=== PATIENT | female | born 1960 | race Caucasian/White ===

== ENCOUNTER 2024-04-26 17:52 | Outpatient (RCR) | payer BC, SELFPAY | END 2024-04-26 23:59 | disposition home or self-care (01) | LOC: RPT 17:52 | PROVIDERS: ATTENDING PHYSICIAN Orthopaedic Surgery; FAMILY PHYSICIAN Family Medicine | DX: M79.671 Pain in right foot (principal); M79.672 Pain in left foot | CPT/HCPCS: 97110; 97162; 97535 ==

== ENCOUNTER → 2024-05-03 | Outpatient (REF) | payer BC, SELFPAY | LOC: DHSLP | PROVIDERS: ATTENDING PHYSICIAN Internal Medicine; FAMILY PHYSICIAN Family Medicine | DX: G47.33 Obstructive sleep apnea (adult) (pediatric) (principal) | CPT/HCPCS: 95800 ==

== ENCOUNTER 2024-05-24 18:03 | Outpatient (RCR) | payer BC, SELFPAY | END 2024-05-24 23:59 | disposition home or self-care (01) | LOC: RPT 18:03 | PROVIDERS: ATTENDING PHYSICIAN Orthopaedic Surgery; FAMILY PHYSICIAN Family Medicine | DX: M79.671 Pain in right foot (principal); M79.672 Pain in left foot | CPT/HCPCS: 97110 ==

== ENCOUNTER 2024-06-28 17:47 | Outpatient (RCR) | payer BC, SELFPAY | END 2024-06-28 23:59 | disposition home or self-care (01) | LOC: RPT 17:47 | PROVIDERS: ATTENDING PHYSICIAN Orthopaedic Surgery; FAMILY PHYSICIAN Family Medicine | DX: M79.671 Pain in right foot (principal); M79.672 Pain in left foot; Z73.6 Limitation of activities due to disability | CPT/HCPCS: 97110; 97535 ==

== ENCOUNTER 2024-07-27 11:02 | Outpatient (RCR) | payer BC, SELFPAY | END 2024-07-27 23:59 | disposition home or self-care (01) | LOC: RPT 11:02 | PROVIDERS: ATTENDING PHYSICIAN Orthopaedic Surgery; FAMILY PHYSICIAN Family Medicine | DX: M79.671 Pain in right foot (principal); M79.672 Pain in left foot | CPT/HCPCS: 97110 ==

== ENCOUNTER 2024-08-02 18:22 | Outpatient (RCR) | payer BC, SELFPAY | END 2024-08-03 06:01 | disposition home or self-care (01) | LOC: RPT 18:22 | PROVIDERS: ATTENDING PHYSICIAN Orthopaedic Surgery; FAMILY PHYSICIAN Family Medicine | DX: M79.671 Pain in right foot (principal); M79.672 Pain in left foot; Z73.6 Limitation of activities due to disability | CPT/HCPCS: 97110 ==

== ENCOUNTER 2024-11-03 06:05 | Day surgery (SDC) | payer BC, SELFPAY ==
[2024-10-05 13:19] VITALS: BMI 33.8
[2024-10-05 13:45] LABS: Hematocrit 39.4 % (37.0-47.0); Hemoglobin 13.6 g/dL (12.0-16.0); Mean Corp Hgb Conc. 34.5 g/dL (33.0-37.0); Mean Corpuscular Hgb 32.9 pg (27.0-31.0); Mean Corpuscular Volume 95.2 fL (81.0-99.0); Mean Platelet Volume 9.7 fL (7.4-10.4); Platelet Count 268 10^3/uL (130-400); Red Blood Cell Count 4.14 10^6/uL (4.20-5.40); Red Cell Dist. Width 13.1 % (11.5-14.5); White Blood Cell Count 5.8 10^3/uL (4.8-10.8)
[2024-10-05 14:03] LABS: ALT (SGPT) 22 U/L (0-35); AST (SGOT) 25 U/L (14-36); Albumin 4.7 g/dl (3.5-5.0); Alkaline Phosphatase 61 U/L (38-126); Blood Urea Nitrogen 25 mg/dl (7-17); Calcium 10.5 mg/dl (8.4-10.2); Carbon Dioxide 29 mmol/L (22-30); Chloride 99 mmol/L (98-107); Estimated Creatinine Clearance 55 ml/min; Glucose 83 mg/dl (70-99); Potassium 3.9 mmol/L (3.5-5.1); Sodium 140 mmol/L (135-145); Total Bilirubin 0.8 mg/dl (0.2-1.3); Total Protein 7.3 g/dl (6.3-8.2); eGFR 49.92
[2024-10-06 09:38] LABS: Glycohemoglobin (HgbA1c) 5.2 % (4.0-5.6)
--- NOTE | 2024-10-20 10:19 | VNURNOTE ---
Patient is scheduled for an elective R TKA on 11/01/[address] Cha. Spoke with patient prior to surgery via telephone.
Introduced role of [facility] liaison. Patient reports that she lives alone in a two story home.
Her sister Medhat Chau will be available to pick her up post op and will stay with her x 1 week.
Sister Medhat Chau # [phone]
There are 2 [address]. To second floor, there are 7 steps, a landing and 7 more steps.
Patient has a bathroom on first floor.
Patient will obtain a rolling walker and cane. Advised to bring RW with her day of surgery.
She has never had VN services.
PCP is Tatiana Borrero
Discussed orthopedic program and post surgical plans. Reviewed anticipated length of stay and that goal is for her to return home at discharge.
Also reviewed outpatient PT. Patient will [facility] appt with [facility] [address]. Date TBD. Referral placed in [facility].
Plan: [facility] then outpt PT
[2024-10-27 09:04] VITALS: BMI 33.8
[2024-11-03] VITALS (14 sets, daily range): BP systolic 86–126; BP diastolic 55–82; PULSE 73; O2SAT 98
[2024-11-03] MEDS: TYLENOL 650 MG PO (06:09)
[2024-11-03] MEDS: CELEBREX 200 MG PO (06:09)
--- NOTE | 2024-11-03 06:36 | W.DS.TRANS ---
DC Summary - Profile Grinder
-
Discharge Instructions:
Discharge Diagnosis/Procedures R TKA Dr. Wolfe 11/03/24
Diet As tolerated
Activity With Walker
Driving Restrictions No driving
Bathing Restrictions OK to Shower
Other Services PT
Instructions:
Stand-Alone Forms: SDS Total Hip and Knee D/C
Changes to Home Medications: Yes
Discharge Medications:
DC Medications w/original date entered in [employer]
escitalopram oxalate 20 mg tablet 20 mg PO BID Depression 07/28/23
buspirone 5 mg tablet 5 mg PO TID 10/27/24
diltiazem HCl 240 mg capsule,24 hr,extended release 240 mg PO HS 10/27/24
tirzepatide (weight loss) 12.5 mg/0.5 mL subcutaneous pen injector (Zepbound) 12.5 mg SC QWEEK 10/27/24
acetaminophen 325 mg tablet (Tylenol) 650 mg (2 x 325 mg) PO QID #1 tab 11/03/24
aspirin 325 mg tablet 325 mg PO DAILY blood clot prevention #1 tab 11/03/24
celecoxib 100 mg capsule 100 mg PO BID Anti-inflammatory #14 caps 11/03/24
dexamethasone 4 mg tablet 4 mg PO BID inflammation #6 tabs 11/03/24
docusate sodium 100 mg capsule (Colace) 100 mg PO BID stool softner #1 cap 11/03/24
magnesium hydroxide 400 mg/5 mL oral suspension (Milk of Magnesia) 30 ml PO HS PRN Constipation #1 mL 11/03/24
ondansetron 4 mg disintegrating tablet 4 mg PO Q6H PRN n/v #20 tabs 11/03/24
oxycodone 5 mg tablet 5 mg PO Q6H PRN 1 tab moderate pain, 2 tabs severe pain #30 tabs 11/03/24
sennosides 8.6 mg tablet (Senokot) 17.2 mg (2 x 8.6 mg) PO BID laxative #2 tabs 11/03/24
triamterene 75 mg-hydrochlorothiazide 50 mg tablet 0.5 tab PO HS Fluid Retention/Swelling #0 tabs 11/03/24
Home Medication Changes
aspirin 325 mg tablet 325 mg PO DAILY blood clot prevention #1 tab 11/03/24
celecoxib 100 mg capsule 100 mg PO BID Anti-inflammatory #14 caps 11/03/24
dexamethasone 4 mg tablet 4 mg PO BID inflammation #6 tabs 11/03/24
docusate sodium 100 mg capsule (Colace) 100 mg PO BID stool softner #1 cap 11/03/24
magnesium hydroxide 400 mg/5 mL oral suspension (Milk of Magnesia) 30 ml PO HS PRN Constipation #1 mL 11/03/24
ondansetron 4 mg disintegrating tablet 4 mg PO Q6H PRN n/v #20 tabs 11/03/24
oxycodone 5 mg tablet 5 mg PO Q6H PRN 1 tab moderate pain, 2 tabs severe pain #30 tabs 11/03/24
sennosides 8.6 mg tablet (Senokot) 17.2 mg (2 x 8.6 mg) PO BID laxative #2 tabs 11/03/24
triamterene 75 mg-hydrochlorothiazide 50 mg tablet 0.5 tab PO HS Fluid Retention/Swelling #0 tabs 11/03/24
Pending Results: No
[2024-11-03] MEDS: ANCEF 5 IV (11:06)
== END 2024-11-03 11:51 | disposition home or self-care (01) ==
LOC: SDS 06:05
PROVIDERS: ATTENDING PHYSICIAN Orthopaedic Surgery; FAMILY PHYSICIAN Family Medicine; REFERRING PHYSICIAN Internal Medicine Cardiovascular Disease
DX: M17.11 Unilateral primary osteoarthritis, right knee (principal)
CPT/HCPCS: 27447; C1776; 36415; 73560; 80053; 83036; 85027; 87070; 97162; 97530; C1713

== ENCOUNTER 2024-11-20 13:58 | Outpatient (RCR) | payer BC, SELFPAY | END 2024-11-20 23:59 | disposition home or self-care (01) | LOC: RPT 13:58 | PROVIDERS: ATTENDING PHYSICIAN Physician Assistant; PRIMARYCARE PHYSICIAN Family Medicine | DX: Z47.1 Aftercare following joint replacement surgery (principal); M17.11 Unilateral primary osteoarthritis, right knee; Z73.6 Limitation of activities due to disability; R26.89 Other abnormalities of gait and mobility; Z96.651 Presence of right artificial knee joint | CPT/HCPCS: 97010; 97110; 97116; 97140; 97161; 97530; 97535 ==

== ENCOUNTER 2024-12-29 14:57 | Outpatient (RCR) | payer BC, SELFPAY | END 2024-12-29 23:59 | disposition home or self-care (01) | LOC: RPT 14:57 | PROVIDERS: ATTENDING PHYSICIAN Physician Assistant; PRIMARYCARE PHYSICIAN Family Medicine | DX: Z47.1 Aftercare following joint replacement surgery (principal); M17.11 Unilateral primary osteoarthritis, right knee; Z73.6 Limitation of activities due to disability; R26.89 Other abnormalities of gait and mobility; M62.81 Muscle weakness (generalized); Z96.651 Presence of right artificial knee joint | CPT/HCPCS: 97110; 97140; 97530 ==

== ENCOUNTER 2025-01-05 15:05 | Outpatient (RCR) | payer BC, SELFPAY | END 2025-01-08 06:23 | disposition home or self-care (01) | LOC: RPT 15:05 | PROVIDERS: ATTENDING PHYSICIAN Physician Assistant; PRIMARYCARE PHYSICIAN Family Medicine | DX: Z47.1 Aftercare following joint replacement surgery (principal); M17.11 Unilateral primary osteoarthritis, right knee; Z73.6 Limitation of activities due to disability; R26.89 Other abnormalities of gait and mobility; M25.561 Pain in right knee; M62.81 Muscle weakness (generalized); Z96.651 Presence of right artificial knee joint | CPT/HCPCS: 97110; 97530; 97535 ==

== ENCOUNTER → 2025-03-22 13:51 | Outpatient (REF) | payer BC, SELFPAY | LOC: HWRCS 13:51 | PROVIDERS: ATTENDING PHYSICIAN Internal Medicine Cardiovascular Disease; FAMILY PHYSICIAN Family Medicine | DX: I77.810 Thoracic aortic ectasia (principal) | CPT/HCPCS: 93306 ==

== ENCOUNTER → 2025-04-13 09:53 | Outpatient (REF) | payer BC, SELFPAY | LOC: HWRAD 09:53 | PROVIDERS: ATTENDING PHYSICIAN Internal Medicine Cardiovascular Disease; FAMILY PHYSICIAN Family Medicine | DX: I77.810 Thoracic aortic ectasia (principal) | CPT/HCPCS: 71250 ==